=== PATIENT | female | born 1940 | race Native Hawaiian/Other Pacific Islander ===

== ENCOUNTER 2017-10-13 13:21 | Observation (INO) | payer OTHER ==
[~2017-10-13] VITALS: Ht 162.6 cm; Wt 64.5 kg
[2017-10-13 13:30] VITALS: BP 175/77; TEMP 98.4
[2017-10-13 14:46] LABS: PLATELET COUNT 202 K/uL (152-353)
[2017-10-13 15:00] VITALS: BP 168/70
[2017-10-13 15:21] LABS: POTASSIUM 4.2 mmol/L (3.6-5.2)
[2017-10-13 16:00] VITALS: BP 191/76
[2017-10-13 18:33] VITALS: BP 160/86; TEMP 97.6; Ht 162.6 cm; Wt 64.5 kg
[2017-10-13] MEDS ORDERED: MULTIVITAMI1 (18:44)
[2017-10-13 20:00] VITALS: BP 160/77; TEMP 98.2
[2017-10-14] VITALS: BP 122/66; TEMP 97.8
[2017-10-14 04:00] VITALS: BP 127/51; TEMP 97.4
[2017-10-14 05:23] LABS: POTASSIUM 3.4 mmol/L (3.6-5.2)
[2017-10-14 05:51] LABS: PLATELET COUNT 143 K/uL (152-353)
[2017-10-14 08:28] VITALS: BP 146/60; TEMP 97.8
[2017-10-14 11:50] VITALS: BP 156/62; TEMP 98.2
[2017-10-14 16:52] VITALS: BP 157/63; TEMP 98.3
[2017-10-14 20:00] VITALS: BP 139/61; TEMP 98.2
[2017-10-15] VITALS: BP 150/65; TEMP 97.7
[2017-10-15 04:00] VITALS: BP 165/70; TEMP 97.6
[2017-10-15 05:47] LABS: PLATELET COUNT 142 K/uL (152-353)
[2017-10-15 05:58] LABS: POTASSIUM 3.4 mmol/L (3.6-5.2)
[2017-10-15 08:00] VITALS: BP 141/54; TEMP 97.9
[2017-10-15 12:00] VITALS: BP 156/67; TEMP 98.3
[2017-10-15 16:00] VITALS: BP 155/74; TEMP 98
[2017-10-15 20:00] VITALS: BP 165/79; TEMP 97.9
[2017-10-16] VITALS: BP 157/75; TEMP 97.3
[2017-10-16 04:00] VITALS: BP 154/75; TEMP 97.4
[2017-10-16 05:41] LABS: PLATELET COUNT 147 K/uL (152-353)
[2017-10-16 05:53] LABS: POTASSIUM 3.7 mmol/L (3.6-5.2)
[2017-10-16 08:00] VITALS: BP 161/62; TEMP 98.1
[2017-10-16 12:00] VITALS: BP 148/64; TEMP 97.8
[2017-10-16] MEDS ORDERED: Flonase Nasal Inhaler NAS (14:02)
[2017-10-16] MEDS ORDERED: TYLENOL 500MG TAB PO (14:02)
[2017-10-16] MEDS ORDERED: LORA10TA3 PO (14:02)
[2017-10-16] MEDS ORDERED: CLOP75TA2 PO (14:02)
[2017-10-16 16:00] VITALS: BP 163/61; TEMP 98.1
== END 2017-10-16 18:14 | disposition short-term general hospital (02) ==
LOC: ED 13:21 → MED/SURG 16:00
PROVIDERS: ADMIT Internal Medicine
DX: R20.0 Anesthesia of skin (principal); R26.9 Unspecified abnormalities of gait and mobility; G45.8 Other transient cerebral ischemic attacks and related syndromes
CPT/HCPCS: 36415; 80053; 83735; 84443; 85027; 96365; 96366; 96374; 99220; 99283; G0378; J2930

== ENCOUNTER 2017-10-16 18:19 | Outpatient (CLI) | payer OTHER ==
[~2017-10-16 18:19] MED LIST: CLOP75TA2 PO; Flonase Nasal Inhaler NAS; LORA10TA3 PO; MULTIVITAMI1; TYLENOL 500MG TAB PO
== END 2017-10-16 18:48 | disposition short-term general hospital (02) ==
LOC: AMB 18:19
DX: R20.0 Anesthesia of skin (principal); R26.9 Unspecified abnormalities of gait and mobility; G45.8 Other transient cerebral ischemic attacks and related syndromes
CPT/HCPCS: A0425; A0429

== ENCOUNTER 2021-12-06 10:14 | Outpatient (CLI) | payer OTHER ==
[2021-12-06 11:22] LABS: PLATELET COUNT 290 K/uL (152-353)
[2021-12-06 11:47] LABS: POTASSIUM 3.4 mmol/L (3.6-5.2)
== END 2021-12-06 19:32 | disposition home or self-care (01) ==
LOC: LABW 10:14
PROVIDERS: ATTEND Nurse Practitioner Family
DX: I10 Essential (primary) hypertension (principal); F41.8 Other specified anxiety disorders; G47.00 Insomnia, unspecified; R26.89 Other abnormalities of gait and mobility; R25.1 Tremor, unspecified; R41.3 Other amnesia; Z79.899 Other long term (current) drug therapy; E78.49 Other hyperlipidemia; R53.83 Other fatigue; R29.6 Repeated falls; E55.9 Vitamin D deficiency, unspecified
CPT/HCPCS: 36415; 80053; 80061; 82306; 83036; 84439; 84443; 85027

== ENCOUNTER 2021-12-08 14:24 | Outpatient (CLI) | payer OTHER | END 2021-12-08 20:03 | disposition home or self-care (01) | LOC: LABW 14:24 | PROVIDERS: ATTEND Nurse Practitioner Family | DX: R06.02 Shortness of breath (principal); D64.9 Anemia, unspecified | CPT/HCPCS: 36415; 82728; 82746; 83540 ==